=== PATIENT | male | born 1990 | race Caucasian/White ===

== ENCOUNTER → 2017-10-24 | Outpatient (CLI) | payer OTHER | LOC: M RAD 14:54 | DX: J34.2 Deviated nasal septum (principal) ==

== ENCOUNTER 2017-11-12 06:11 | Day surgery (SDC) | payer OTHER ==
[2017-11-12] MEDS ORDERED: dexameTHASONE 4 MG/ML 1ML VIAL (J1100) As Ordered (07:20)
[2017-11-12] MEDS ORDERED: ROCURONIUM BROMIDE 50 MG/5 ML VIAL As Ordered (07:20)
[2017-11-12] MEDS ORDERED: PROPOFOL 200 MG/20 ML VIAL As Ordered (07:20)
[2017-11-12] MEDS ORDERED: LIDOCAINE 2% INJ 100 MG/5 ML SDV (FOR ANES.) As Ordered (07:20)
[2017-11-12] MEDS ORDERED: MIDAZOLAM INJ 2 MG/2 ML VIAL (J2250) As Ordered (07:21)
[2017-11-12] MEDS ORDERED: fentaNYL 100 MCG/2 ML INJECTION (J3010) As Ordered ×2 (07:21)
[2017-11-12] MEDS: SODIUM CHLORIDE 0.9% NASAL GEL 15GM (AYR) As Ordered (08:31)
[2017-11-12] MEDS: OXYMETAZOLINE NASAL SPRAY (AFRIN) As Ordered (08:31)
[2017-11-12] MEDS: METHYLENE BLUE 0.5% (5MG/ML) 10 ML AMP (PROVAYBLUE)(Q9968 PER 1MG) As Ordered (08:32)
[2017-11-12] MEDS: LIDOCAINE W/EPINEPHRINE 1% 20ML VIAL As Ordered (08:33)
[2017-11-12] MEDS ORDERED: ONDANSETRON 4MG/2ML VIAL (J2405) As Ordered (08:48)
[2017-11-12] MEDS ORDERED: NEOSTIGMINE 10 MG/10 ML VIAL (J2710) As Ordered ×2 (08:51)
[2017-11-12] MEDS ORDERED: GLYCOPYRROLATE INJ 0.2 MG/ML 2 ML VIAL As Ordered (08:51)
[2017-11-12] MEDS: LR 1,000 ML IV (09:22)
[2017-11-12] MEDS ORDERED: ONDANSETRON 4MG/2ML VIAL (J2405) IV (09:45)
[2017-11-12] MEDS: NORCO, ANEXSIA 5/325MG TABLET (HYDROcodone/ACETAMINOPHEN) PO (09:45)
[2017-11-12] MEDS ORDERED: LR 1,000 ML IV (09:45)
[2017-11-12] MEDS: fentaNYL 100 MCG/2 ML INJECTION (J3010) IV ×2 (09:45→09:50)
== END 2017-11-12 10:41 | disposition home or self-care (01) ==
LOC: M SDC 06:11
DX: J34.2 Deviated nasal septum (principal); J34.89 Other specified disorders of nose and nasal sinuses; J34.3 Hypertrophy of nasal turbinates; Z91.048 Other nonmedicinal substance allergy status
CPT/HCPCS: 30520

== ENCOUNTER 2017-11-21 12:25 | Emergency (ER) | payer OTHER | END 2017-11-21 15:12 | disposition home or self-care (01) | LOC: M ED 12:25 | DX: J01.90 Acute sinusitis, unspecified (principal); Z88.8 Allergy status to other drugs, medicaments and biological substances | CPT/HCPCS: 70486 ==